=== PATIENT | female | born 1955 | race Caucasian/White ===

== ENCOUNTER 2022-06-09 10:21 | Emergency (ER) | payer OTHER, SELFPAY ==
[2022-06-09] VITALS (7 sets, daily range): BP systolic 143–165; BP diastolic 88–112; PULSE 74–126; RESP 14–18; TEMP 36.7; O2SAT 98–100; BMI 24.0
--- NOTE | 2022-06-09 10:44 | ED_ITS ---
HPI - Arrhythmia/Palpitations General Time Seen by Provider: 10:45 Date Seen: 06/09/22 Chief Complaint: Arrhythmia/Palpitations Stated Complaint: Heart palpitations possible AFIB Time Seen by Provider: 06/09/22 10:44 Source: patient and RN notes reviewed Mode of arrival: ambulatory Limitations: no limitations History of Present Illness HPI narrative: Patient is a 66-year-old female coming in with irregular heartbeat and a sense of palpitations. She can feel the heavy beating the ongoing irregularity. She has some slight shortness of breath. She was at breakfast this morning around 830, endorses drinking a lot of coffee. She had 1 glass of wine last night but does not drink alcohol on a daily basis or significant alcohol. She felt this sometime after 830. She has a history of atrial fibrillation about 3 years ago. She has continued to have an occasional palpitation were it will be 1 or 2 beats that feels irregular while she is just sitting and resting on the couch at night. This is definitely different for her this is ongoing irregularity. She states they did do a Holter monitor recently in [place] where she resides just to ensure that she was not having recurrent atrial fibrillation. She reports that this Holter did not show that. The palpitations that she will feel when sitting on the couch at night will be 1 or 2 beats, nothing sustained. She is most definite that this is very different and just started this morning. She ate a full breakfast at about 830. She denies any prior cardiac issues such as any ischemic issues are congestive heart failure. She has no chronic respiratory issues. Denies any recent illness, no acute cough or cold symptoms. Patient was wondering if we can do the transesophageal echo prior to cardioversion. I reviewed with her that we most certainly cannot. I a did review with her stroke risk with cardioversion particularly if there has been sustained or unknown atrial fibrillation prior to her having the onset of symptoms this morning. She has most definite that she feels these symptoms and does not believe they were there prior to this morning. complaint: palpitations and irregular heart beat Related Data Home Medications Medication Instructions Recorded Confirmed aspirin 81 mg chewable tablet 81 mg PO DAILY 06/09/22 06/09/22 Previous Rx's Medication Instructions Recorded apixaban 5 mg tablet (Eliquis) 5 mg PO BID #60 tabs 06/09/22 metoprolol succinate 25 mg 25 mg PO DAILY #30 tabs 06/09/22 tablet,extended release 24 hr Allergies Allergy/AdvReac Type Severity Reaction Status Date / Time black sutures Allergy Rash Uncoded 06/09/22 10:37 Review of Systems Status of ROS: Reports: 10 or more systems reviewed and unremarkable except as noted in History and below Exam Const: Vital Signs, click to edit/add: Vital Signs - 24 hr 06/09/22 10:38 06/09/22 11:00 06/09/22 12:00 Temperature 98.0 F Pulse Rate [Right Pulse Oximeter] 126 H 107 H 98 Respiratory Rate 18 18 18 Blood Pressure [Le ft Upper Arm] 155/100 H 152/106 H 165/102 H Pulse Oximetry 99 100 100 Oxygen Delivery Me thod Room Air Room Air Room Air 06/09/22 11:30 06/09/22 12:30 06/09/22 13:00 Temperature Pulse Rate [Right Pulse Oximeter] 105 H 100 101 H Respiratory Rate 14 14 14 Blood Pressure [Le ft Upper Arm] 152/110 H 146/110 H 143/112 H Pulse Oximetry 98 100 99 Oxygen Delivery Me thod Room Air Room Air Room Air Documenting provider has reviewed patient's vital signs: yes Common normals: no apparent distress, average body habitus, oriented x3, no limitations, healthy appearing and alert General appearance: cooperative, comfortable and well kempt HENMT: Common normals: normocephalic, head/scalp atraumatic, hearing grossly normal bilaterally, external ears normal, external nose normal, nasal mucous membranes and turbinates normal, moist oral mucous membranes, oropharynx normal, dentition normal and gingiva normal Head and scalp: normocephalic and atraumatic Nose: external nose normal and nasal mucous membranes and turbinates normal External ear: external ears normal Eye: Common normals: PERRL, EOMs intact bilaterally, conjunctivae normal and no scleral icterus Conjunctiva: conjunctiva(e) normal Pupil: PERRL Neck & C-Spine: Common normals: full ROM, no lymphadenopathy, supple, no meningeal signs, no JVD and thyroid normal Thyroid: thyroid normal Resp: Common normals: normal respiratory effort, no retractions, no use of accessory muscles and clear to auscultation bilaterally Auscultation: clear to auscultation bilaterally Cardio: Common normals: no JVD, regular rate, regular rhythm, S1 normal heart sound, S2 normal heart sound, no gallops, no clicks and no murmurs Rate: regular rate Rhythm: regular rhythm Heart sounds: S1 normal and S2 normal GI: Common normals: Normal to inspection, nondistended, normoactive bowel sounds present, soft to palpation, non-tender, no hepatosplenomegaly, no masses and no bruits Palpation: soft and no hepatosplenomegaly Extremity: Common normals: normal to inspection, full ROM, normal capillary refill, no joint enlargement, no clubbing, cyanosis or edema, no calf tenderness and no pedal edema Neuro: Common normals: oriented x3, CN's II-XII intact bilaterally, moves all extremities, no focal motor deficits, no sensory deficits noted and gait normal Sensorium/orientation: alert Meningeal signs: no meningeal signs Speech: speech normal Psych: Appearance: well kempt Course Course Hospital Course: Appropriate labs including magnesium, TSH, troponin will be done. We will get a portable chest x-ray but I am doubtful that she has an any congestive heart failure based on my clinical exam. EKG, cardiac monitoring and pulse oximetry will be done. Will give her a L of normal saline over 2 hours and will see how she responds to 5 mg IV metoprolol. She states she did not cardiovert with medicines before and was cardioverted with electricity 3 years ago. Reevaluation(s) Reevaluation #1: Just before 2:00 p.m., nursing staff noted patient had cardioverted. Followup EKG per my review showed sinus rhythm, 76 beats per minute, no acute pathology. Discussed Eliquis/anticoagulant use with her due to her chads Vasc score as well as rates depression with some low-dose metoprolol. She would be willing to do both of these. I will order 5 mg Eliquis and 25 mg metoprolol XL. Time: 14:06 Consultations Consultation #1: Spoke with Dr. Johnson from [facility] on-call. He agrees with cardioversion. He did state that he would consider keeping this woman on long- term anticoagulation with her chads Vasc score of 3. I will review this with her. She will be on anticoagulation for the next month and this will give her time for follow-up to review this further with her primary physician or Cardiology where she lives. Time: 13:51 Vital Signs Vital signs: Initial Vital Signs Temperature 98.0 F 06/09/22 10:38 Temperature Source Temporal Artery Scan 06/09/22 10:38 Pulse Rate 126 H 06/09/22 10:38 Pulse Rhythm 06/09/22 10:38 Respiratory Rate 18 06/09/22 10:38 Blood Pressure 155/100 H 06/09/22 10:38 Blood Pressure Mean 118 06/09/22 10:38 Blood Pressure Position Sitting 06/09/22 10:38 Pulse Oximetry 99 06/09/22 10:38 Oxygen Delivery Method 06/09/22 10:38 Vital Signs Temperature 98.0 F 06/09/22 10:38 Pulse Rate 126 H 06/09/22 10:38 Respiratory Rate 18 06/09/22 10:38 Blood Pressure 155/100 H 06/09/22 10:38 Pulse Oximetry 99 06/09/22 10:38 Oxygen Delivery Method 06/09/22 10:38 Temperature 98.0 F 06/09/22 10:38 Pulse Rate 101 H 06/09/22 13:00 Respiratory Rate 14 06/09/22 13:00 Blood Pressure 143/112 H 06/09/22 13:00 Pulse Oximetry 99 06/09/22 13:00 Oxygen Delivery Method 06/09/22 13:00 MDM - Arrhythmia/Palpitations Lab Data Labs: Lab Results 06/09/22 06/09/22 06/09/22 Range/Units 10:55 10:55 11:05 WBC 5.47 (4.50-11.00) K/uL RBC 4.89 (4.00-5.20) m/uL Hgb 14.2 (12.0-16.0) gm/dL Hct 44.3 (33.0-51.0) % MCV 91 (80-100) fL MCH 29 (26-34) pg MCHC 32 (32-36) gm/dL RDW Coeff of Twila 13.0 (11.5-15.5) % Plt Count 253 (140-440) K/uL Neut % (Auto) 67.1 (42.0-72.0) % Lymph % (Auto) 25.2 (20-44) % [place] % (Auto) 5.9 (0.0-11.0) % Eos % (Auto) 1.1 (0.0-7.0) % Baso % (Auto) 0.5 (0.0-3.0) % Neut # (Auto) 3.67 (1.7-7.0) K/uL Lymph # (Auto) 1.38 (0.90-2.90) K/uL [place] # (Auto) 0.30 (0.00-0.90) K/UL Eos # (Auto) 0.06 (0.00-0.50) K/uL Baso # (Auto) 0.03 (0.00-0.30) K/uL Abs Immat Gran (auto) 0.01 (0.00-0.30) K/uL Magnesium 2.3 (1.5-2.6) mg/dL POC Troponin I 0.01 (0.01-0.04) ng/ml Imaging Data Chest x-ray: Attestation: I have reviewed the pertinent imaging results. Radiologist's impression: Patient: TREVA LIMA Facility:?[facility] Patient ID:?[id number] Site Patient ID:?[id number]. Site :?[id number] Study:?XRay Chest 1v portable-06/09/2022 11:34:54 AM Ordering Physician:Steve Ryan Final Report: INDICATION: afib w/ rvr TECHNIQUE: Chest 1 view. COMPARISON: None. FINDINGS: Cardiovascular and mediastinum: Heart size and vasculature are normal in caliber and appearance. Mediastinum is within normal limits. Lungs and pleural space: Lungs are clear. No sign of infiltrate or mass. No sign of pleural effusion. No pneumothorax. Bones and soft tissues: No significant findings. IMPRESSION: Unremarkable chest. Dictated by: Gasper Valentine MD @ 06/09/2022 11:51:01 (Electronic Signature) ECG Data Attestation: I personally reviewed and interpreted this ECG as follows: (Ox atrial fibrillation with rapid ventricular response 116 beats per minute. She has inferior and lateral ST segment depression.) ECG interpretation date: 06/09/22 ECG interpretation time: 11:24 Core Measures AMI core measures followed: No Critical Care Time Critical Care Time Critical Care Time: Yes Attestation: The patient required my highest level preparedness to intervene emergently and I personally spent this critical care time directly and personally managing the patient. This critical care time included: Obtaining a history; Examining the patient; Pulse oximetry; Ordering and reviewing of studies; Arranging urgent treatment with development of a management plan; Evaluation of patients response to treatment; Frequent reassessment discussions with other providers. This critical care time was performed to assess and manage the high probability of imminent life-threatening deterioration that could result in multiorgan failure. It was exclusive of separate billable procedures and treating other patients and teaching time. Total Critical Care Time in Minutes: 120 Discharge Plan Discharge Clinical Impression: Atrial fibrillation with rapid ventricular response Patient Disposition: Home, Self-Care Condition: Stable Instructions: A-fib (Atrial Fibrillation) (ED), Blood Thinners (ED) Additional Instructions: Continue to monitor pulse. If it should become sustained irregular again, do recommend follow-up. Need to schedule a follow-up with your primary care provider within the next 1-2 weeks upon return to home. Do recommend cardiology referral, updated echo to be done in consideration for cardiac stress testing as well. Discussed with your primary care provider or Cardiology ongoing anticoagulant use as well as ongoing rate suppression. I have sent a script for the next 30 days for Eliquis 5 mg twice a day, discuss further use with cardiology.. Baby aspirin while on Eliquis. Minimize alcohol and caffeine use. Activity Level: Activity as Tolerated Prescriptions: New Eliquis 5 mg tablet 5 mg PO BID Qty: 60 0RF metoprolol succinate 25 mg tablet extended release 24 hr 25 mg PO DAILY Qty: 30 0RF No Action aspirin 81 mg tablet,chewable 81 mg PO DAILY Follow Up/Referrals: Provider,Not a Local [Primary Care Provider] - Stand Alone Forms: [employer] Info Instructions
--- NOTE | 2022-06-09 11:07 | CRLHL7_ITS ---
For Patients: As a result of the Century Cures Act, medical imaging exams and procedure reports are released immediately into your electronic medical record. You may view this report before your referring provider. If you have questions, please contact your health care provider. INDICATION: afib w/ rvr TECHNIQUE: Chest 1 view. COMPARISON: None. FINDINGS: Cardiovascular and mediastinum: Heart size and vasculature are normal in caliber and appearance. Mediastinum is within normal limits. Lungs and pleural space: Lungs are clear. No sign of infiltrate or mass. No sign of pleural effusion. No pneumothorax. Bones and soft tissues: No significant findings. IMPRESSION: Unremarkable chest. Dictated by: Gasper Valentine MD @ 06/09/2022 11:51:01 (Electronically Signed)
[2022-06-09] MEDS: METOPROLOL TARTRATE 1 MG/ML inj 5 MG IVP (11:25)
[2022-06-09] MEDS: 0.9 % SODIUM CHLORIDE 1000 ml 1,000 ML 500 ML IV (11:27)
[2022-06-09 11:29] LABS: Troponin, Point-of-Care* 0.01 ng/ml (0.01-0.04)
[2022-06-09 11:30] LABS: Basophils Absolute Auto 0.03 K/uL (0.00-0.30); Basophils Percent Auto 0.5 % (0.0-3.0); Eosinophils Absolute Auto 0.06 K/uL (0.00-0.50); Eosinophils Percent Auto 1.1 % (0.0-7.0); Hematocrit 44.3 % (33.0-51.0); Hemoglobin* 14.2 gm/dL (12.0-16.0); Immature Granulocytes Abs Auto 0.01 K/uL (0.00-0.30); Lymphocytes Absolute Auto 1.38 K/uL (0.90-2.90); Lymphocytes Percent Auto 25.2 % (20-44); Mean Corpuscular HGB Conc 32 gm/dL (32-36); Mean Corpuscular Hemoglobin 29 pg (26-34); Mean Corpuscular Volume 91 fL (80-100); Monocytes Percent Auto 5.9 % (0.0-11.0); Neutrophils Absolute Auto 3.67 K/uL (1.7-7.0); Neutrophils Percent Auto 67.1 % (42.0-72.0); Platelet Count* 253 K/uL (140-440); Red Blood Count 4.89 m/uL (4.00-5.20); White Blood Count* 5.47 K/uL (4.50-11.00)
[2022-06-09 11:35] LABS: Slide Review Reflex No
[2022-06-09 12:00] LABS: Magnesium* 2.3 mg/dL (1.5-2.6)
--- NOTE | 2022-06-09 13:52 | PC.NURSE ---
preparing for cardioversion and pt converted to NSR with rate 70's, EKG to room
--- NOTE | 2022-06-09 13:53 | PC.NURSE ---
preparing for cardioversion and pt converted to
[2022-06-09] MEDS: APIXABAN 5 MG TABLET PO (14:28)
[2022-06-09] MEDS: METOPROLOL SUCCINATE (XL) 25 MG TAB PO (14:28)
[2022-06-09 17:39] LABS: Albumin* 4.5 g/dL (3.3-5.0); Chloride* 106 mmol/L (96-114)
[2022-06-09 17:40] LABS: Potassium* 3.7 mmol/L (3.6-5.1); Sodium* 142 mmol/L (135-149)
[2022-06-09 17:42] LABS: Alkaline Phosphatase* 100 U/L (40-150); Aspartate Amino Transferase* 32 U/L (12-35); Bilirubin Total* 0.4 mg/dL (0.1-1.5); Carbon Dioxide* 25 mmol/L (20-32); Est. Creatinine Clearance* 58.23; Estimated Glomerular Filt Rate 61 ml/min; Total Protein* 7.4 g/dL (6.0-8.3)
[2022-06-09 17:43] LABS: Alanine Aminotransferase* 18 U/L (4-35); Blood Urea Nitrogen* 18 mg/dL (7-30); Calcium* 9.5 mg/dL (8.4-10.6); Glucose* 89 mg/dL (60-115)
[2022-06-09 17:51] LABS: NT Pro B Type NatriureticPept* 239 PG/mL (0-125)
== END 2022-06-09 14:30 | disposition home or self-care (01) ==
PROVIDERS: Emergency Provider Family Medicine
DX: I48.20 Chronic atrial fibrillation, unspecified (principal)
CPT/HCPCS: 36415; 71045; 80053; 80306; 81001; 82077; 83605; 83735; 83880; 84145; 84484; 85025; 86140; 87040; 87635; 93005; 99284; 99285; 99291; 99292; M0243; A9270; J7030